=== PATIENT | male | born 1975 | race Caucasian/White ===

== ENCOUNTER 2017-05-30 18:04 | Inpatient (IN) ==
--- NOTE | 2017-05-30 18:15 | Emergency Department Note ---
Disposition Clinical Impression: Combative behavior Disposition: Still a Patient Condition: Good Referrals: NONE,PCP [Primary Care Provider] - Forms: ED Satisfaction Letter Psych HPI - General Chief Complaint: ED Psychiatric Symptoms Stated [facility] Se[facility] by Provider: 05/30/17 18:14 Source: patient Mode of arrival: EMS Limitations: no limitations Nursing Notes Reviewed: Yes Vital Signs Reviewed: Yes - History of Present Illness HPI Narrative: 42-year-old male reported history of bipolar and schizophrenia who presents to the ER from [facility] who presents to the ER via EMS due to agitation and threats of violence. Patient was seen prior to arrival and was pink slipped for paranoid thoughts and making threats to other members there. He denies suicidal or homicidal ideation. He denies auditory or visual hallucinations. He denies intoxication or drug ingestion. 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 Pt complaint: other (Agitation) Onset (ago): Just [employer] Duration: constant History of similar episodes: Yes Improves with: none Worsens with: none Alleged intoxication: No Associated Psychiatric Symptoms: none Associated symptoms: Reports: denies other symptoms Traumatic symptoms: denies traumatic injury Treatments prior to arrival: none Self harm or harm to others: denies thoughts of harming self/others - Related Data Previous Rx's Medication Instructions Recorded Dicyclomine [Bentyl] 20 mg PO BID PRN #20 capsule 12/03/16 Ondansetron ODT [Zofran ODT] 4 mg SL Q6HR #10 tab.rapdis 12/03/16 Clindamycin HCl 450 mg PO TID 10 Days 04/21/17 Ibuprofen 800 mg PO TID PRN #15 tablet 04/21/17 Allergies Allergy/AdvReac Type Severity Reaction Status Date / Time Penicillins [PCN] Allergy Severe Difficulty Verified 12/16/16 19:06 Breathing Tomato Allergy Severe Difficulty Verified 12/16/16 19:06 Breathing All systems ED: reviewed and negative except as stated. Cardiovascular: Denies: chest pain Respiratory: Denies: dyspnea Gastrointestinal: Denies: abdominal pain Psychiatric: Denies: anxiety, depression, suicidal thoughts, homicidal thoughts , auditory hallucinations, visual hallucinations Past Medical History - Past Medical History Attestation: Yes The following information was validated with the patient. Source: patient Medical history: Reports: CHF, diabetes, hepatitis, hyperlipidemia, hypertension , kidney stones, liver disease, renal disease, syncope, other Surgical history: Reports: no surgical history Psychiatric history: Reports: anxiety, bipolar, depression, PTSD, previous psychiatric hospitalization - Social History Smoking Status: Former smoker Smokeless Tobacco Status: No Alcohol use: Reports: none Drug use: Reports: opiates, methamphetamine, IV Drug Use Physical Exam - General Limitations: no limitations General appearance: alert, in no apparent distress - Head Head exam: atraumatic, normocephalic, normal inspection - Eye Eye exam: Present: normal appearance, EOMI - ENT ENT exam: normal exam - Neck Neck exam: Present: normal inspection, full ROM - Chest Chest inspection: Present: normal inspection, symmetric chest wall rise - Respiratory Respiratory exam: Present: normal lung sounds bilaterally - Cardiovascular Cardiovascular exam: Present: regular rate, normal rhythm, normal heart sounds - Abdominal Exam Abdominal exam: Present: soft, Non-Tender. Absent: tenderness, distention, rigidity - Extremities Exam Extremities exam: Present: normal inspection, full ROM - Expanded Upper Extremity Exam Shoulder exam: Present: normal inspection, full ROM Arm exam: Present: normal inspection, full ROM Elbow exam: Present: normal inspection, full ROM Forearm/Wrist exam: Present: normal inspection, full ROM Hand exam: Present: normal inspection, full ROM Vascular exam: Normal: radial pulse - Expanded Lower Extremity Exam Hip/Pelvis exam: Present: normal inspection, full ROM Upper leg exam: Present: normal inspection, full ROM Knee exam: Present: normal inspection, full ROM Lower leg exam: Present: normal inspection, full ROM Ankle exam: Present: normal inspection, full ROM Foot/toe exam: Present: normal inspection, full ROM Neurovascular/Tendon exam: Absent: motor deficit, sensory deficit - Neurological Exam Neurological exam: Present: alert, other (GCS 15. Nonfocal neurologic exam. Moves all extremities equally.) - Psychiatric Psychiatric exam: Present: normal affect, normal mood - Skin Skin exam: Present: warm, dry, intact, normal color Course Course Narrative: Patient seen and examined. He was pink slipped prior to arrival. We will get labs for medical clearance for psychiatric evaluation. - Reevaluation(s) Reevaluation #1: Patient medically cleared for psychiatric evaluation. Psychiatric service was contacted at 19:35. Currently awaiting [facility] for evaluation. Vital Signs Temperature 99 F 05/30/17 18:06 Pulse Rate 97 05/30/17 18:06 Respiratory Rate 18 05/30/17 18:06 Blood Pressure 147/83 05/30/17 18:06 O2 Sat by Pulse Oximetry 95 05/30/17 18:06 Temperature 99 F 05/30/17 18:06 Pulse Rate 87 05/31/17 06:47 Respiratory Rate 16 05/31/17 06:47 Blood Pressure 127/79 05/31/17 06:47 O2 Sat by Pulse Oximetry 95 05/31/17 06:47 Oxygen Delivery Oxygen Delivery Room Air Psych - MDM Narrative Medical decision making narrative: 42-year-old male presents to the ER due to combative behavior and psychiatric evaluation. Peak flow prior to arrival. He is medically cleared for psychiatric evaluation. He was seen in the department by the psychiatric service. We are currently awaiting on management by Lisy Walters. Patient signed out to nursing staff development coordinator team pending formal psychiatric recommendations. - Lab Data Lab results reviewed: Yes I reviewed the patient's lab results. Result diagrams: 05/30/17 18:22 05/30/17 18:22 Lab Results 05/30/17 05/30/17 05/30/17 Range/Units 18:22 18:22 18:28 WBC 7.7 (4.3-11.1) K/mcL RBC 4.97 (4.19-5.50) M/mcL Hgb 15.5 (12.9-16.9) g/dL Hct 45.0 (37.5-50.1) % MCV 90.5 (83.0-100.0) fL MCH 31.2 (28.0-33.3) pg MCHC 34.4 (31.6-35.5) g/dL RDW 12.7 (11.5-14.5) % Plt Count 206 (140-400) K/mcL MPV 9.6 (9.4-12.4) fL Immature Gran % 1.2 (0-4) % Seg Neutrophils % 50.1 % Lymphocytes % 36.1 % Monocytes % 9.2 % Eosinophils % 2.4 % Basophils % 1.0 % Neutrophils # 3.8 (1.6-8.9) K/mcL Lymphocytes # 2.8 (0.6-4.6) K/mcL Monocytes # 0.7 (0.0-1.3) K/mcL Eosinophils # 0.2 (0.0-0.6) K/mcL Basophils # 0.1 (0.0-0.2) K/mcL Sodium 137 (136-145) mEq/L Potassium 4.4 (3.5-4.5) mEq/L Chloride 102 (98-109) mEq/L Carbon Dioxide 26 (19-29) mEq/L BUN 7 L (8-26) mg/dL Creatinine 0.77 (0.72-1.25) mg/dL Est GFR ( Amer) > 60 (> 60) Est GFR (Non-Af Amer) > 60 (> 60) BUN/Creatinine Ratio 9 (6-26) Glucose 107 H (70-99) mg/dL Calculated Osmolality 282 (280-300) Calcium 9.9 (8.6-10.8) mg/dL TSH 6.231 H (0.350-4.840) mcIU/mL Urine Color Yellow (Yellow) Urine Clarity Cloudy A (Clear) Urine pH 7.5 (5.0-8.0) pH Units Ur Specific [place] 1.014 (1.010-1.025) Urine Protein Negative (Neg-Trace) mg/dL Urine Glucose (UA) Normal (Normal) mg/dL Urine Ketones Negative (Negative) mg/dL Urine Blood Negative (Negative) Urine Nitrite Negative (Negative) Urine Bilirubin Negative (Negative) Urine Urobilinogen Normal (Normal) mg/dL Ur Leukocyte Esterase Negative (Negative) Urine Microscopic RBC 0-3 (0-3) per hpf Urine Microscopic WBC 0-3 (0-3) per hpf Ur Squamous Epith Cells Moderate H (None-Few) per lpf Urine Bacteria None Seen (None-Few) per hpf Hyaline Casts None Seen (None-Few) per lpf Salicylates < 5.0 L (15-30) mg/dL Urine Opiates Screen (Mzzesw=518) ng/mL Acetaminophen < 1.0 L (10-30) mcg/mL Ur Barbiturates Screen (Csppat=738) ng/mL Ur Phencyclidine Scrn (Cutoff=25) ng/mL Ur Amphetamines Screen (Uboeaj=8173) ng/mL U Benzodiazepines Scrn (Izawrr=029) ng/mL Urine Cocaine Screen (Cutoff= 300) ng/mL U Marijuana (THC) Screen (Cutoff = 50) ng/mL Ethyl Alcohol < 10 (0-10) mg/dL 05/30/17 Range/Units 18:28 WBC (4.3-11.1) K/mcL RBC (4.19-5.50) M/mcL Hgb (12.9-16.9) g/dL Hct (37.5-50.1) % MCV (83.0-100.0) fL MCH (28.0-33.3) pg MCHC (31.6-35.5) g/dL RDW (11.5-14.5) % Plt Count (140-400) K/mcL MPV (9.4-12.4) fL Immature Gran % (0-4) % Seg Neutrophils % % Lymphocytes % % Monocytes % % Eosinophils % % Basophils % % Neutrophils # (1.6-8.9) K/mcL Lymphocytes # (0.6-4.6) K/mcL Monocytes # (0.0-1.3) K/mcL Eosinophils # (0.0-0.6) K/mcL Basophils # (0.0-0.2) K/mcL Sodium (136-145) mEq/L Potassium (3.5-4.5) mEq/L Chloride (98-109) mEq/L Carbon Dioxide (19-29) mEq/L BUN (8-26) mg/dL Creatinine (0.72-1.25) mg/dL Est GFR ( Amer) (> 60) Est GFR (Non-Af Amer) (> 60) BUN/Creatinine Ratio (6-26) Glucose (70-99) mg/dL Calculated Osmolality (280-300) Calcium (8.6-10.8) mg/dL TSH (0.350-4.840) mcIU/mL Urine Color (Yellow) Urine Clarity (Clear) Urine pH (5.0-8.0) pH Units Ur Specific [place] (1.010-1.025) Urine Protein (Neg-Trace) mg/dL Urine Glucose (UA) (Normal) mg/dL Urine Ketones (Negative) mg/dL Urine Blood (Negative) Urine Nitrite (Negative) Urine Bilirubin (Negative) Urine Urobilinogen (Normal) mg/dL Ur Leukocyte Esterase (Negative) Urine Microscopic RBC (0-3) per hpf Urine Microscopic WBC (0-3) per hpf Ur Squamous Epith Cells (None-Few) per lpf Urine Bacteria (None-Few) per hpf Hyaline Casts (None-Few) per lpf Salicylates (15-30) mg/dL Urine Opiates Screen Negative (Uzdyxc=777) ng/mL Acetaminophen (10-30) mcg/mL Ur Barbiturates Screen Negative (Bstujk=568) ng/mL Ur Phencyclidine Scrn Negative (Cutoff=25) ng/mL Ur Amphetamines Screen Negative (Wtjiux=5042) ng/mL U Benzodiazepines Scrn Negative (Epvifq=176) ng/mL Urine Cocaine Screen Negative (Cutoff= 300) ng/mL U Marijuana (THC) Screen Negative (Cutoff = 50) ng/mL Ethyl Alcohol (0-10) mg/dL Psychiatric Medical Clearance - Medical Clearance Checklist Medical History: No Social History Section defined Current Vitals: Last Vital Signs Temp 99 F 05/30/17 18:06 Pulse 87 05/31/17 06:47 Resp 16 05/31/17 06:47 BP 127/79 05/31/17 06:47 Pulse Ox 95 05/31/17 06:47 Psychiatric Lab Panel: Drug Levels and Toxicity 05/30/17 05/30/17 18:22 18:28 Urine Opiates Screen Negative Acetaminophen < 1.0 L Ur Barbiturates Screen Negative Ur Phencyclidine Scrn Negative Ur Amphetamines Screen Negative U Benzodiazepines Scrn Negative Urine Cocaine Screen Negative U Marijuana (THC) Screen Negative Ethyl Alcohol < 10 Abnormal Labs: Abnormal lab results BUN 7 mg/dL (8-26) L 05/30/17 18:22 Glucose 107 mg/dL (70-99) H 05/30/17 18:22 TSH 6.231 mcIU/mL (0.350-4.840) H 05/30/17 18:22 Urine Clarity Cloudy (Clear) A 05/30/17 18:28 Ur Squamous Epith Cells Moderate per lpf (None-Few) H 05/30/17 18:28 Salicylates < 5.0 mg/dL (15-30) L 05/30/17 18:22 Acetaminophen < 1.0 mcg/mL (10-30) L 05/30/17 18:22 S.B.A.R. - S.B.A.R. Situation: Demographics, MOA Background: Presenting Complaint, Relevant PMH, Meds, & Allergies Assessment: Course and respsone to treatment, Patient/Family Expectation, Pertinant Lab Results Recommendation: Barrier(s) to disposition S.B.A.R. Report Given to: Mr. Atkins Attestation Statement - Attestation Attestation: I examined this patient and my medical decision-making was reviewed with the Resident Physician, Dr. Gross I agree with the documented findings, disposition and treatment plan as described except to the extent set forth below. Pt brought to ED by EMS< 42 yo wm, hx bipolar and schizophrenia, who was agitated and threatening other residents and staff, also commented on hearing voices telling him to hurt others. Pt arrives calm and cooperative. Pt with no complaints, denies any HI/SI/hallucinations/delusions. No physical complaitns. I agree with PE as documented. VSS. Pt with lab evaluation wnl. Remained resting comfortably throughout ED course. Pt medically cleared for further psych eval. Seen by 1A, awaiting definitive placement at si time. Pt signed out to Dr. Thomas and the nursing staff development coordinator team.
[2017-05-30 18:35] LABS: Basophils # 0.1 K/mcL (0.0-0.2); Eosinophils # 0.2 K/mcL (0.0-0.6); Eosinophils % 2.4 %; Hemoglobin 15.5 g/dL (12.9-16.9); Immature Granulocytes % 1.2 % (0-4); Lymphocytes # 2.8 K/mcL (0.6-4.6); Lymphocytes % 36.1 %; Mean Corpuscular HGB Conc 34.4 g/dL (31.6-35.5); Mean Corpuscular Hemoglobin 31.2 pg (28.0-33.3); Mean Corpuscular Volume 90.5 fL (83.0-100.0); Mean Platelet Volume 9.6 fL (9.4-12.4); Monocytes # 0.7 K/mcL (0.0-1.3); Monocytes % 9.2 %; Neutrophils # 3.8 K/mcL (1.6-8.9); Platelet Count 206 K/mcL (140-400); Red Blood Count 4.97 M/mcL (4.19-5.50); Red Cell Distribution Width 12.7 % (11.5-14.5); Segmented Neutrophils % 50.1 %
[2017-05-30 18:40] LABS: Bilirubin,Urine Negative (Negative); Blood,Urine Negative (Negative); Clarity,Urine Cloudy (Clear); Color,Urine Yellow (Yellow); Glucose,Urine (UA) Normal (Normal); Ketones,Urine Negative (Negative); Leukocyte Esterase,Urine Negative (Negative); Nitrite,Urine Negative (Negative); PH,Urine 7.5 pH Units (5.0-8.0); Protein,Urine Negative (Neg-Trace); Specific Gravity,Urine 1.014 (1.010-1.025); Urobilinogen,Urine Normal (Normal)
[2017-05-30 18:43] LABS: Bacteria,Urine None Seen per hpf (None-Few); Hyaline Casts,Urine None Seen per lpf (None-Few); RBC,Urine 0-3 per hpf (0-3); Squamous Epithelial Cell,Urine Moderate per lpf (None-Few); WBC,Urine 0-3 per hpf (0-3)
[2017-05-30 18:46] LABS: Amphetamine Screen,Urine Negative ng/mL (Cutoff=1000); Barbiturate Screen,Urine Negative ng/mL (Cutoff=200); Benzodiazepines Screen,Urine Negative ng/mL (Cutoff=200); Cannabinoid Screen,Urine Negative ng/mL (Cutoff = 50); Cocaine Screen,Urine Negative ng/mL (Cutoff= 300); Opiate Screen,Urine Negative ng/mL (Cutoff=300); Phencyclidine Screen,Urine Negative ng/mL (Cutoff=25)
[2017-05-30 18:50] LABS: BUN/Creatinine Ratio 9 (6-26); Blood Urea Nitrogen 7 mg/dL (8-26); Calcium 9.9 mg/dL (8.6-10.8); Carbon Dioxide 26 mEq/L (19-29); Chloride 102 mEq/L (98-109); Glucose 107 mg/dL (70-99); Osmolality,Calculated 282 (280-300); Potassium 4.4 mEq/L (3.5-4.5); Sodium 137 mEq/L (136-145); eGFR For African Americans > 60 (> 60); eGFR For Non-African Americans > 60 (> 60)
[2017-05-30 18:57] LABS: Acetaminophen < 1.0 mcg/mL (10-30); Ethanol < 10 mg/dL (0-10); Salicylate < 5.0 mg/dL (15-30)
[2017-05-30 19:10] LABS: Thyroid Stimulating Hormone 6.231 mcIU/mL (0.350-4.840)
[2017-05-30] MEDS ORDERED: GI Cocktail 40 ML EACH PO ONE (20:41)
[2017-05-30] MEDS ORDERED: Famotidine 20 MG TABLET PO ONE (22:27)
--- NOTE | 2017-05-31 06:37 | Emergency Department Note ---
START Narrative - START START: This patient was signed out at shift change from Dr. Gross and Dr. Karly Liriano. Please refer to their notes for complete details of the history and physical examination. At shift change patient has been evaluated by the psychiatry service and is awaiting psychiatric bed placement. Patient has slept throughout the night with no complaints or issues. At shift change he is being [facility] [place] [facility] [place], Dr. Mtz.
[2017-05-31] MEDS ORDERED: traZODone 50 MG TABLET PO STA ×2 (16:57→22:06)
[2017-06-01] MEDS ORDERED: *HR* LORazepam 1 MG TABLET PO ONE ×3 (04:45→17:53)
[2017-06-01] MEDS ORDERED: traZODone 50 MG TABLET PO SCH (21:15)
[2017-06-01] MEDS ORDERED: *HR* LORazepam 1 MG TABLET PO PRN ×2 (21:35→21:57)
[2017-06-01] MEDS ORDERED: hydrOXYzine pamoate 25 MG CAPSULE PO PRN (21:35)
[2017-06-01] MEDS ORDERED: MOM Conc 10 ML UD.LIQ PO PRN (21:35)
[2017-06-01] MEDS ORDERED: Acetaminophen 325 MG TABLET PO PRN (21:35)
[2017-06-01] MEDS ORDERED: Haloperidol Lactate 5 MG/ML VIAL IM PRN ×2 (21:35→22:01)
[2017-06-01] MEDS ORDERED: *HR* LORazepam 2 MG/ML VIAL IM PRN ×2 (21:35→21:57)
[2017-06-01] MEDS ORDERED: Mag Hydrox/Al Hydrox/Simeth 30 ML UDC PO PRN (21:35)
[2017-06-01] MEDS: traZODone 50 MG TABLET PO SCH (23:00)
[2017-06-01] MEDS: Nicotine 21 MG PATCH.TD24 TD SCH (23:01)
[2017-06-02] MEDS ORDERED: Nicotine 21 MG PATCH.TD24 TD SCH (09:00)
[2017-06-02] MEDS: chlorproMAZINE 25 MG TABLET PO SCH (10:26)
[2017-06-02] MEDS: Nicotine 21 MG PATCH.TD24 TD SCH (10:27)
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
[2017-06-02] MEDS: traZODone 50 MG TABLET PO SCH (21:08)
[2017-06-03] MEDS: chlorproMAZINE 25 MG TABLET PO SCH (08:59)
[2017-06-03] MEDS: Nicotine 21 MG PATCH.TD24 TD SCH (08:59)
--- NOTE | 2017-06-03 10:32 | Psychiatry Progress Note ---
Date of Encounter: 06/03/17 Time of Encounter: 09:00 Subjective Interval history: Keegan is seen today for follow-up. He has been cooperative and appropriate with staff. He is upset that he will not be returning to [facility] for his treatment. He is concerned he will be sent back to residential. He still feels depressed and anxious. Apparently some of his belongings were brought in yesterday the patient states that not all of his things were there. He mentioned to staff that he would go down to [facility] once discharged to "deal with this." Staff was able to redirect him and encouraged him to ask his mother to obtain the rest of his belongings. Review of Systems Psychiatric: Reports: depression, anxiety, abnormal sleep pattern, irritability , mood swings. Denies: homicidal ideation, auditory hallucinations, visual hallucinations Objective: Exam Patient orientation: Yes Person, Yes Time, Yes Place Level of alertness: Alert Patient appearance: Appropriate, Well Groomed Behavior: calm, cooperative Psychomotor activity: Normal Eye contact: Maintains Eye Contact Mood description: Depressed, Anxious Affect description: congruent with mood Speech pattern: Normal rate, Normal rhythm, Normal tone Speech volume: Normal Thought process: Intact, Logical, Goal Oriented Thought content: Yes Intact (still verbalizing thoughts to hurt others ) Perceptual disturbances: No Auditory hallucinations, No Visual hallucinations Judgment: Limited Insight: Minimal Results - Vital Signs Vital Signs: Temp Pulse Resp BP Pulse Ox 97.6 F 96 16 113/80 98 06/02/17 19:45 06/02/17 19:45 06/02/17 19:45 06/02/17 19:45 06/01/17 22:00 Assessment and Plan (1) Schizoaffective disorder Current visit: Yes Status: Acute Plan: Continue hospitalization, Close observation, Suicide Precautions per unit protocol, Encourage participation in unit milieu, Group Therapy, Monitor sleep, Monitor appetite Additional Plan: Continue current meds. Encourage positive coping strategies and monitoring behavior. Continue hospitalization until symptoms improve. Risks, benefits, side effects, alternatives discussed w/pt: Yes Patient agreeable to treatment: Yes Qualifiers: Schizoaffective disorder type: depressive Qualified Code(s): F25.1 - Schizoaffective disorder, depressive type (2) Opiate dependence Current visit: No Status: Acute Risks, benefits, side effects, alternatives discussed w/pt: Yes Patient agreeable to treatment: Yes Qualifiers: Substance use status: uncomplicated Qualified Code(s): F11.20 - Opioid dependence, uncomplicated Consult Discharge Plan - Plan Referrals: NONE,PCP [Primary Care Provider] -
[2017-06-03] MEDS: traZODone 50 MG TABLET PO SCH (20:43)
[2017-06-03] MEDS: Ibuprofen 400 MG TABLET PO PRN (21:21)
[2017-06-04] MEDS: chlorproMAZINE 25 MG TABLET PO SCH (08:39)
[2017-06-04] MEDS: Nicotine 21 MG PATCH.TD24 TD SCH (08:41)
--- NOTE | 2017-06-04 10:39 | Psychiatry Progress Note ---
Date of Encounter: 06/04/17 Time of Encounter: 10:23 Subjective Interval history: Patient seen today for first time for follow up. case d/w staff and treatment team , patient has h/o Schizoaffective disorder and polysubstance use and iv use , he was at rehab center and was having threatening and violent behaviours and was sent to ER , patient since here is started on Paxil and is showing some improvement, he is still depress and looks dysphoric, slept some last night. chart was reviewed , labs reviewed has increase TSH , he has multiple medical problems but as per him no medications as stable now and has PCP. at present states if someone makes me angry , i get thoughts of hurting them. he denies suicidal ideas. at present denies aud/visual hallucinations, paranoia sometimes. Review of Systems Psychiatric: Reports: depression, anxiety, abnormal sleep pattern, irritability , mood swings. Denies: homicidal ideation, auditory hallucinations, visual hallucinations Objective: Exam Patient orientation: Yes Person, Yes Time, Yes Place Level of alertness: Alert Patient appearance: Appropriate Behavior: cooperative, guarded Psychomotor activity: Normal Eye contact: Minimal Contact Mood description: Depressed Affect description: dysphoric Speech pattern: Slowed Speech volume: Soft/Quiet Thought process: Slowed Thinking Thought content: Yes Preoccupation Judgment: Limited Insight: Partial Results - Vital Signs Vital Signs: Temp Pulse Resp BP Pulse Ox 97.6 F 85 16 137/81 98 06/03/17 21:00 06/03/17 21:00 06/03/17 21:00 06/03/17 21:00 06/01/17 22:00 Assessment and Plan (1) Schizoaffective disorder Current visit: Yes Status: Acute Plan: Continue hospitalization, Close observation, Suicide Precautions per unit protocol, Encourage participation in unit milieu, Group Therapy, Monitor sleep, Family/Supportive other meeting Risks, benefits, side effects, alternatives discussed w/pt: Yes Patient agreeable to treatment: Yes Qualifiers: Schizoaffective disorder type: depressive Qualified Code(s): F25.1 - Schizoaffective disorder, depressive type (2) Impulse control disorder Current visit: No Status: Acute Plan: Continue hospitalization, Close observation, Encourage participation in unit milieu, Family/Supportive other meeting Risks, benefits, side effects, alternatives discussed w/pt: Yes Patient agreeable to treatment: Yes (3) Opiate dependence Current visit: No Status: Acute Plan: Continue hospitalization, Close observation Risks, benefits, side effects, alternatives discussed w/pt: Yes Patient agreeable to treatment: Yes Qualifiers: Substance use status: uncomplicated Qualified Code(s): F11.20 - Opioid dependence, uncomplicated (4) Methamphetamine abuse Current visit: No Status: Acute Plan: Continue hospitalization, Close observation Risks, benefits, side effects, alternatives discussed w/pt: Yes Patient agreeable to treatment: Yes Consult Discharge Plan - Plan Referrals: NONE,PCP [Primary Care Provider] -
[2017-06-04] MEDS: traZODone 50 MG TABLET PO SCH (19:59)
[2017-06-04] MEDS: Ibuprofen 400 MG TABLET PO PRN (20:00)
[2017-06-05] MEDS ORDERED: Levothyroxine 25 MCG TABLET PO SCH (06:30)
[2017-06-05] MEDS: chlorproMAZINE 25 MG TABLET PO SCH (09:09)
[2017-06-05] MEDS: Nicotine 21 MG PATCH.TD24 TD SCH (09:19)
--- NOTE | 2017-06-05 10:54 | Discharge Summary ---
Date of Encounter: 06/05/17 Time of Encounter: 10:35 Diagnosis - Discharge Diagnosis (1) Schizoaffective disorder Status: Acute Comments: patient is stable and denies any psychosis . Qualifiers: Schizoaffective disorder type: depressive Qualified Code(s): F25.1 - Schizoaffective disorder, depressive type (2) Impulse control disorder Status: Acute Comments: patient has not been impulsive and is compliant with medication. (3) Opiate dependence Status: Acute Comments: patient is sober for 35 days from opiate. Qualifiers: Substance use status: uncomplicated Qualified Code(s): F11.20 - Opioid dependence, uncomplicated (4) Methamphetamine abuse Status: Acute Medications - Discharge Medications Prescriptions: chlorproMAZINE [Thorazine] 200 mg PO DAILY #30 tab Levothyroxine [Synthroid] 25 mcg PO DAILY@0630 #30 tab Paroxetine [Paxil] 20 mg PO DAILY #30 tab Quetiapine Fumarate [Seroquel] 100 mg PO BID #30 tab Quetiapine Fumarate [Seroquel] 200 mg PO HS #30 tab traZODone [TraZODone] 200 mg PO HS #30 tab Chlorpromazine HCl 200 mg PO DAILY 06/01/17 [History] Prazosin [Minipress] 1 mg PO HS 06/01/17 [History] traZODone [TraZODone] 200 mg PO HS 06/01/17 [History] Levothyroxine [Synthroid] 25 mcg PO DAILY@0630 #30 tab 06/05/17 [Rx] Paroxetine [Paxil] 20 mg PO DAILY #30 tab 06/05/17 [Rx] Prazosin [Minipress] 1 mg PO HS 06/05/17 [Rx] Quetiapine Fumarate [Seroquel] 100 mg PO BID #30 tab 06/05/17 [Rx] Quetiapine Fumarate [Seroquel] 200 mg PO HS #30 tab 06/05/17 [Rx] chlorproMAZINE [Thorazine] 200 mg PO DAILY #30 tab 06/05/17 [Rx] traZODone [TraZODone] 200 mg PO HS #30 tab 06/05/17 [Rx] 3 Allergy/AdvReac Type Severity Reaction Status Date / Time Penicillins [PCN] Allergy Severe Difficulty Verified 06/01/17 08:27 Breathing Tomato Allergy Severe Difficulty Verified 06/01/17 08:27 Breathing Provider Date of admission: 06/04/17 07:37 Primary care physician: PCP NONE Assessment and Plan - Patient/Caregiver Discharge Instructions Diet: regular diet Additional Instructions: Sandie Cha/[facility] has advised that you report to [facility] immediately upon discharge from the hospital. Josef's office is located on the 2nd floor of the [facility] in [place]. The address is [address] [place] [address]. - Follow up Plan Follow up with: [facility] [Outside] - 06/06/17 10:00 am (The above appointment is with Whit Bishop for mental health and substance abuse counseling services. You will also see Dr. Baugh on 07/06/2017 at 10:00am for outpatient psychiatric assessment and medication management services.) Functional capacity at discharge: independent ambulation Overall status at discharge: Stable Disposition: Home, Self-Care Hospital Course Hospital course: Mr. Batista is a 42 year old male with history of Schizoaffective disorder depressed type and opiate and methamphetamine dependence , he also has long legal history and violent behaviours which led to this hospitalization , patient was court ordered to [facility] treatment and after he apparently pushed other patient and making threatening statements to staff and other patients , it was recommended to send him to [facility] but no beds .therefore he came to ER and admitted to . for evaluation and stabilization. He has been calm and cooperative , but felt depressed and irritable and upset by what happened at [facility] . during his stay he was compliant with medications but did not attend all the groups, he denied suicidal ideas or any thoughts of hurting others, he denied psychosis and no side effects. patient was started on paxil 20 mg and he has benefitted from it. his routine labs were done , had increase TSH and was given yvonne dose synthriod till evaluated by his PCP. 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 Time spent discussing smoking cessation with patient: 3 to 10 minutes Does patient wish to continue nicotine replacement upon disc: No - Time Spent with Patient Total time spent providing and/or coordinating discharge services: Greater than 30 minutes Quality - Multiple Antipsychotics Patient discharged on 2 or more antipsychotic medications: Yes - Justification Documentation of: History 3 failed trials of monotherapy (patient at present need 2 antipsychotic for his stability.) - Additional Details Additional Details: patient has been on 2 antipsychotics for long and stable with them so continuation of care it was continued. he has no side effects. AIMS 0 Procedures - Procedures Procedures: Medication Management, Crisis Stabilization, Supportive Therapy, Group Therapy, Psychoeducational Therapy Mental Status Exam - Mental Status Exam Patient orientation: Yes Person, Yes Time, Yes Place Level of alertness: Alert Patient appearance: Appropriate Behavior: cooperative, anxious Psychomotor activity: Normal Eye contact: Maintains Eye Contact Mood description: Anxious Affect description: congruent with mood Speech pattern: Coherent Speech Volume: Normal Thought process: Intact Thought Content: Yes Intact Judgment: Good (patient at present not danger to self/others.) Insight: Partial
[2017-06-05 12:16] VITALS: BP 131/83
== END 2017-06-05 11:59 | disposition home or self-care (01) | DRG 750 ==
LOC: 1ANU 18:04 → EMEROO 18:04 → 1ANU 06-01 22:03 → SUATTDRO 06-04 07:37
PROVIDERS: ADMIT Student in an Organized Health Care Education/Training Program; ATTEND Psychiatry & Neurology Psychiatry

== ENCOUNTER 2022-05-23 11:45 | Inpatient (IN) ==
[2022-05-23] MEDS ORDERED: GI Cocktail 40 ML EACH PO ONE (13:13)
[2022-05-23 13:54] LABS: Basophils # 0.1 K/mcL (0.0-0.2); Basophils % 0.9 %; Eosinophils # 0.1 K/mcL (0.0-0.6); Eosinophils % 1.2 %; Hematocrit 39.9 % (37.5-50.1); Hemoglobin 13.2 g/dL (12.9-16.9); Immature Granulocytes % 0.1 % (0-4); Lymphocytes # 1.9 K/mcL (0.6-4.6); Lymphocytes % 28.2 %; Mean Corpuscular HGB Conc 33.1 g/dL (31.6-35.5); Mean Corpuscular Hemoglobin 30.8 pg (28.0-33.3); Mean Platelet Volume 10.1 fL (9.4-12.4); Monocytes % 15.1 %; Neutrophils # 3.7 K/mcL (1.6-8.9); Platelet Count 230 K/mcL (140-400); Red Blood Count 4.29 M/mcL (4.19-5.50); Red Cell Distribution Width 12.7 % (11.5-14.5); Segmented Neutrophils % 54.5 %; White Blood Count 6.8 K/mcL (4.3-11.1)
[2022-05-23 14:41] LABS: Acetaminophen < 10 mcg/mL (10-20); Alanine Aminotransferase 49 Units/L (7-52); Albumin 3.9 g/dL (3.5-5.7); Albumin/Globulin Ratio 1.3 (1.1-2.2); Alkaline Phosphatase 58 Units/L (34-104); Aspartate Amino Transferase 44 Units/L (13-39); BUN/Creatinine Ratio 26 (6-26); Bilirubin,Direct 0.2 mg/dL (0.0-0.2); Bilirubin,Indirect 0.5 mg/dL (0.0-1.0); Bilirubin,Total 0.7 mg/dL (0.3-1.0); Blood Urea Nitrogen 17 mg/dL (6-20); Calcium 9.2 mg/dL (8.6-10.3); Carbon Dioxide 28 mEq/L (23-29); Chloride 104 mEq/L (98-107); Ethanol < 10 mg/dL (Less than 10); Glucose 103 mg/dL (70-105); Osmolality,Calculated 292 (280-300); Potassium 3.7 mEq/L (3.5-5.1); Salicylate < 2.5 mg/dL (15.0-30.0); Sodium 140 mEq/L (136-145); Thyroid Stimulating Hormone 1.328 mcIU/mL (0.340-5.600); Total Protein 6.9 g/dL (6.4-8.9)
[2022-05-23 18:29] LABS: Bilirubin,Urine Negative (Negative); Blood,Urine Negative (Negative); Clarity,Urine Clear (Clear); Color,Urine Yellow (Yellow); Glucose,Urine (UA) Normal (Normal); Ketones,Urine Negative (Negative); Leukocyte Esterase,Urine Negative (Negative); Nitrite,Urine Negative (Negative); PH,Urine 6.5 pH Units (5.0-8.0); Protein,Urine Trace mg/dL (Neg-Trace); Specific Gravity,Urine 1.023 (1.010-1.025)
[2022-05-23 18:47] LABS: Amphetamine Screen,Urine Positive ng/mL (Cutoff=1000); Barbiturate Screen,Urine Negative ng/mL (Cutoff=200); Benzodiazepines Screen,Urine Negative ng/mL (Cutoff=200); Cannabinoid Screen,Urine Positive ng/mL (Cutoff = 50); Cocaine Screen,Urine Negative ng/mL (Cutoff= 300); Opiate Screen,Urine Negative ng/mL (Cutoff=300); Phencyclidine Screen,Urine Negative ng/mL (Cutoff=25)
[2022-05-23] MEDS ORDERED: Melatonin 3 MG TABLET PO SCH (21:45)
[2022-05-24] MEDS ORDERED: Nicotine 2 MG GUM BC ONE (15:02)
[2022-05-24 16:01] LABS: Influenza A PCR Negative (Negative); Influenza B PCR Negative (Negative); Resp. Syncytial Virus PCR Negative (Negative)
[2022-05-24 16:03] LABS: SARS-CoV-2 by PCR (In House) Negative (Negative)
[2022-05-24] MEDS ORDERED: Nicotine 2 MG GUM BC PRN (16:18)
[2022-05-24] MEDS ORDERED: Haloperidol Lactate 5 MG/ML VIAL IM PRN (16:18)
[2022-05-24] MEDS ORDERED: haloperidoL 5 MG TABLET PO PRN (16:18)
[2022-05-24] MEDS ORDERED: *HR* LORazepam 2 MG/ML VIAL IM PRN (16:18)
[2022-05-24] MEDS ORDERED: Acetaminophen 325 MG TABLET PO PRN (16:18)
[2022-05-24] MEDS ORDERED: hydrOXYzine pamoate 25 MG CAPSULE PO PRN (16:18)
[2022-05-24] MEDS ORDERED: *HR* LORazepam 1 MG TABLET PO PRN (16:18)
[2022-05-24] MEDS ORDERED: Melatonin 3 MG TABLET PO PRN ×2 (16:20→18:08)
[2022-05-24] MEDS ORDERED: QUEtiapine Fumarate 100 MG TABLET PO SCH (21:00)
[2022-05-24] MEDS ORDERED: traZODone 50 MG TABLET PO SCH (21:00)
[2022-05-24 21:05] VITALS: O2SAT 97
[2022-05-25 10:19] LABS: Estimated Average Glucose 111 mg/dl; Hemoglobin A1C 5.5 %
[2022-05-25 10:57] VITALS: BP 144/82; PULSE 72; TEMP 97.4
[2022-05-25] MEDS ORDERED: traZODone 50 MG TABLET PO SCH (21:00)
[2022-05-25] MEDS ORDERED: QUEtiapine Fumarate 300 MG TABLET PO SCH (21:00)
[2022-05-26] MEDS ORDERED: Levothyroxine 25 MCG TABLET PO SCH (06:30)
[2022-05-26] MEDS ORDERED: PARoxetine 20 MG TABLET PO SCH (09:00)
[2022-05-26] MEDS ORDERED: QUEtiapine Fumarate 100 MG TABLET PO SCH (09:00)
== END 2022-05-25 11:57 | disposition home or self-care (01) | DRG 750 ==
LOC: EMEROOARM 11:45 → 1ANU 05-24 17:14
PROVIDERS: ADMIT Psychiatry & Neurology Psychiatry; ATTEND Psychiatry & Neurology Psychiatry